=== PATIENT | male | born 1980 | race Two or more races ===

== ENCOUNTER 2024-01-26 17:17 | Emergency (ER) | payer MEDICAID, OTHER ==
[~2024-01-26] VITALS: Ht 175.3 cm; Wt 77.3 kg
[2024-01-26] MEDS: NOREPINEPHRINE 8 MG/250ML KIT 250 ML IV SCH (17:29)
[2024-01-26] MEDS: EPINEPHrine HCL 250 ML IV SCH (17:32)
[2024-01-26 17:40] VITALS: PULSE 150; RESP 18; O2SAT 100
[2024-01-26] MEDS: SODIUM CHLORIDE 0.9% 1,000 ML IV ONE (17:40)
[2024-01-26 17:45] VITALS: BP 173/102; PULSE 153; RESP 18; O2SAT 100
[2024-01-26 17:48] LABS: Urine Bacteria None Seen /hpf (None Seen)
[2024-01-26] MEDS: MANNITOL 20% SOLN 100 gm/500ml 500 ML IV ONE (17:58)
[2024-01-26] MEDS: SODIUM BICARB 8.4% 50Meq/50ml SYR Vial IV ONE (18:09)
[2024-01-26] MEDS: IOHEXOL 300 MG/ML 100ML BOTTLE IJ ONE ×2 (18:09)
[2024-01-26] MEDS: levETIRAcetam 1000 mg/100ml 100 ML IV ONE (18:09)
[2024-01-26] MEDS: EPINEPHrine HCL 250 ML IV ONE (18:09)
[2024-01-26] MEDS: NOREPINEPHRINE 8 MG/250ML KIT 250 ML IV ONE (18:10)
[2024-01-26 18:21] LABS: Basophils # (auto) 0 10 ^3/uL (0-0.2); Basophils % (auto) 0.5 % (0.0-2.0); Eosinophils # (auto) 0.2 10 ^3/uL (0-0.8); Eosinophils % (auto) 2.4 % (0.0-7.0); Hematocrit 37.5 % (41.0-53.0); Hemoglobin 11.4 g/dL (13.5-17.5); Lymphocytes # (auto) 3.8 10 ^3/uL (0.4-5.4); Lymphocytes % (auto) 40.8 % (10.0-50.0); Mean Corpuscular Hemoglobin 29.6 pg (28.0-32.0); Mean Corpuscular Hgb Conc. 30.3 g/dL (32.0-36.0); Mean Corpuscular Volume 97.9 fL (80.0-100.0); Monocytes # (auto) 0.4 10 ^3/uL (0-1.3); Monocytes % (auto) 4.5 % (0.0-12.0); Neutrophils # (auto) 4.9 10 ^3/uL (1.6-8.6); Neutrophils % (auto) 51.8 % (37.0-80.0); Nucleated Red Blood Cells % 0.3 %; Platelet Count (auto) 193 10^3/uL (140-450); Red Blood Cells 3.83 10^6/uL (4.5-5.90); Red Cell Distribution Width 15.4 % (11.8-14.3); White Blood Cell 9.4 10^3/uL (4.4-10.8)
[2024-01-26] MEDS: MANNITOL 20 % (20GM/100ML) 500 ML IV ONE (18:24)
[2024-01-26] MEDS: MANNITOL FTV 25% 12.5 GM/50 ML 0 ML IV ONE (18:24)
[2024-01-26 18:29] LABS: Base Excess -10.4 mmol/L (-2.0-2.0)
[2024-01-26 18:33] LABS: Amphetamine Screen, Urine Pos (NEGATIVE); Barbiturate Scree,Urine Neg (NEGATIVE); Benzodiazephine Screen, Urine Neg (NEGATIVE); Cocaine Screen, Urine Neg (NEGATIVE); Opiate Scree,Urine Neg (NEGATIVE)
[2024-01-26 18:34] LABS: Cannabinoid Screen, Urine Pos (NEGATIVE); Phencyclidine Screen, Urine Neg (NEGATIVE); Urine Blood Negative /uL (Negative); Urine Clarity Turbid (Clear); Urine Color Yellow (Yellow); Urine Hyaline Cast FEW /lpf (0 - 2); Urine Mucus FEW (None Seen); Urine Protein, UAD 1+ (Negative); Urine Specific Gravity 1.024 (1.001-1.035); Urine Sperm PRESENT /hpf (None Seen); Urine Urobilinogen Normal (Negative); Urine WBC 4 /hpf (0 - 3)
[2024-01-26 18:34] LABS: Alanine Aminotransferase 47 U/L (7-40); Albumin 3.2 g/dL (3.2-4.8); Alkaline Phosphatase 73 U/L (46-116); Anion Gap 23 (5-15); Aspartate Aminotransferase 47 U/L (13-40); BUN/Creatinine Ratio 8.2 (10.0-20.0); Blood Urea Nitrogen 15 mg/dL (9-23); Calcium 10.5 mg/dL (8.7-10.4); Carbon Dioxide 14 mmol/L (20-30); Chloride 106 mmol/L (98-107); Glucose 315 mg/dL (74-106); Lipase 48 U/L (12-53); Potassium 4.6 mmol/L (3.5-5.1); Sodium 143 mmol/L (136-145)
[2024-01-26 18:35] LABS: Bilirubin, Total < 0.2 mg/dL (0.2-1.0); Total Protein 5.1 g/dL (5.7-8.2)
[2024-01-26 18:40] VITALS: PULSE 128; RESP 20; TEMP 98; O2SAT 100
[2024-01-26 18:50] VITALS: BP 172/113
== END 2024-01-26 17:56 | disposition short-term general hospital (02) ==
LOC: EDBD 17:17 → ER 17:17
DX: S06.309A Unspecified focal traumatic brain injury with loss of consciousness of unspecified duration, initial encounter (principal); J96.90 Respiratory failure, unspecified, unspecified whether with hypoxia or hypercapnia; R40.4 Transient alteration of awareness; Z79.899 Other long term (current) drug therapy; Y08.89XA Assault by other specified means, initial encounter; Y93.89 Activity, other specified; Y92.89 Other specified places as the place of occurrence of the external cause; Y99.8 Other external cause status
CPT/HCPCS: 31500; 36415; 36556; 36600; 70450; 71260; 72125; 74177; 80053; 80307; 80320; 81001; 82805; 83605; 83690; 83880; 85025; 87070; 87077; 87186; 87205; 92950; 93005; 96365; 96368; 99291; J0171; J1953; Q9967